=== PATIENT | female | born 1965 | race Hispanic/Latino ===

== ENCOUNTER 2018-02-25 21:10 | Emergency (ER) | payer OTHER, SELFPAY ==
[2018-02-25 22:24] LABS: Absolute Lymphocytes (CBC) 0.5 K/uL (0.7-4.9); Absolute Monocytes 1.1 K/uL (0.1-1.3); Absolute Neutrophil 16.8 K/uL (1.8-8.0); Basophils % 0.1 % (0-1.3); Eosinophils % 0.1 % (0-4.4); Hematocrit 32.3 % (36.0-45.0); Lymphocytes % 2.4 % (15.3-44.8); MCH 22.6 pg (27.0-35.0); MCV 69.9 fL (80-100); MPV 8.8 fL (7.6-11.3); Monocytes % 6.2 % (3.3-12.3); RBC Red Blood Cell Count 4.62 M/uL (3.86-4.86)
[2018-02-25] MEDS ORDERED: ACETAMINOPHEN 500 MG TAB ONE (22:27)
[2018-02-25] MEDS ORDERED: KETOROLAC 30 MG/ML INJ ONE (22:28)
[2018-02-25] MEDS ORDERED: ONDANSETRON 4 MG/2 ML VIAL ONE (22:28)
[2018-02-25 22:47] LABS: Albumin 3.5 g/dL (3.4-5.0); Bilirubin Direct 0.1 mg/dL (0-0.2); Bilirubin Total 0.5 mg/dL (0.2-1.0); Potassium 3.5 mmol/L (3.5-5.1); Protein, Total 7.7 g/dL (6.4-8.2)
[2018-02-25 23:15] LABS: Blood Morphology Comment NOTED (NOT SEEN); Platelet Estimate ADEQ
[2018-02-25 23:16] LABS: Ovalocytes 2+
[2018-02-26 00:29] LABS: Urine Bacteria <20 /HPF (<20); Urine Culture Reflex Order REFLEXED
[2018-02-26] MEDS ORDERED: NA CHLORIDE 0.9% 100 ML IV ONE (01:17)
[2018-02-26] MEDS ORDERED: CEFTRIAXONE 1000 MG/VIAL ONE (01:17)
--- NOTE | 2018-02-26 01:33 | EDPHYS ---
Physician Documentation [facility] Name: Layo Paul Age: 53 yrs Sex: Female : 1965 Arrival Date: 02/25/2018 Time: 21:11 Bed 13 Private MD: ED Physician Nigel Porter HPI: 02/25 22:22 This 53 yrs old Female presents to ER via Ambulatory with complaints of wa Abdominal Pain, Urinary Problem, Nausea. 22:22 The patient presents to the emergency department with nausea, vomiting. Onset: The wa symptoms/episode began/occurred yesterday. Possible causes: states same symptoms related to menses. The symptoms are aggravated by nothing. The symptoms are alleviated by nothing. Associated signs and symptoms: Pertinent positives: nausea, vomiting, Pertinent negatives: constipation, diarrhea, dysuria, fever. Severity of symptoms: At their worst the symptoms were moderate today, in the emergency department the symptoms are unchanged. The patient has experienced similar episodes in the past, multiple times. The patient has not recently seen a physician. 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 - Social history:: Smoking status: Patient/guardian denies using tobacco. - Ebola Screening: : Patient negative for fever greater than or equal to 101.5 degrees Fahrenheit, and additional compatible Ebola Virus Disease symptoms. - Family history:: not pertinent. - Hospitalizations: : No recent hospitalization is reported. ROS: 22:26 Constitutional: Negative for fever, chills, and weight loss, Eyes: Negative for injury, wa pain, redness, and discharge, ENT: Negative for injury, pain, and discharge, Neck: Negative for injury, pain, and swelling, Cardiovascular: Negative for chest pain, palpitations, and edema, Respiratory: Negative for shortness of breath, cough, wheezing, and pleuritic chest pain, Back: Negative for injury and pain, MS/Extremity: Negative for injury and deformity, Skin: Negative for injury, rash, and discoloration, Neuro: Negative for headache, weakness, numbness, tingling, and seizure, Psych: Negative for depression, anxiety, suicide ideation, homicidal ideation, and hallucinations. 22:26 Abdomen/GI: Positive for abdominal pain, of the suprapubic area. 22:26 : Positive for pelvic pain, of the suprapubic area, Negative for urinary symptoms, urinary frequency. Exam: 22:27 Constitutional: This is a well developed, well nourished patient who is awake, alert, wa and in no acute distress. Head/Face: Normocephalic, atraumatic. Eyes: Pupils equal round and reactive to light, extra-ocular motions intact. Lids and lashes normal. Conjunctiva and sclera are non-icteric and not injected. Cornea within normal limits. Periorbital areas with no swelling, redness, or edema. ENT: Nares patent. No nasal discharge, no septal abnormalities noted. Tympanic membranes are normal and external auditory canals are clear. Oropharynx with no redness, swelling, or masses, exudates, or evidence of obstruction, uvula midline. Mucous membranes moist. Neck: Trachea midline, no thyromegaly or masses palpated, and no cervical lymphadenopathy. Supple, full range of motion without nuchal rigidity, or vertebral point tenderness. No Meningismus. Chest/axilla: Normal chest wall appearance and motion. Nontender with no deformity. No lesions are appreciated. Cardiovascular: Regular rate and rhythm with a normal S1 and S2. No gallops, murmurs, or rubs. Normal PMI, no JVD. No pulse deficits. Respiratory: Lungs have equal breath sounds bilaterally, clear to auscultation and percussion. No rales, rhonchi or wheezes noted. No increased work of breathing, no retractions or nasal flaring. Back: No spinal tenderness. No costovertebral tenderness. Full range of motion. Skin: Warm, dry with normal turgor. Normal color with no rashes, no lesions, and no evidence of cellulitis. MS/ Extremity: Pulses equal, no cyanosis. Neurovascular intact. Full, normal range of motion. Neuro: Awake and alert, GCS 15, oriented to person, place, time, and situation. Cranial nerves II-XII grossly intact. Motor strength 5/5 in all extremities. Sensory grossly intact. Cerebellar exam normal. Normal gait. Psych: Awake, alert, with orientation to person, place and time. Behavior, mood, and affect are within normal limits. 22:27 Abdomen/GI: Inspection: abdomen appears normal, Bowel sounds: normal, in all quadrants, Palpation: moderate abdominal tenderness, in the suprapubic area. 22:27 : CVA tenderness, is absent. Vital Signs: 21:34 BP 122 / 51; Pulse 98; Resp 18 S; Temp 98.0(O); Pulse Ox 98% on R/A; Weight 92.99 kg jd3 (R); Height 5 ft. 6 in. (167.64 cm) (R); Pain 10/10; 22:39 BP 135 / 67; Pulse 80; Resp 17 S; Pulse Ox 98% on R/A; jd3 23:37 BP 135 / 77; Pulse 89; Resp 16 S; Pulse Ox 97% on R/A; d3 02/26 00:28 BP 119 / 60; Pulse 88; Resp 19 S; Pulse Ox 99% on R/A; jd3 01:31 BP 108 / 65; Pulse 80; Resp 18; Pulse Ox 97% on R/A; tl2 02:04 BP 115 / 60; Pulse 82; Resp 20; Temp 98.4(O); Pulse Ox 98% on R/A; Pain 3/10; fc 02/25 21:34 Body Mass Index 33.09 (92.99 kg, 167.64 cm) j MDM: 02/25 21:23 Patient medically screened. dc 22:29 Differential diagnosis: dysmenorrhea. r/o infection. check labs. treat pain. reassess. dc 02/26 01:30 Data reviewed: vital signs, nurses notes, lab test result(s). Test interpretation: by dc ED physician or midlevel provider: labs noted for UTI. elevated wbc. CT abd/pelvis: no acute process. 3 cm L adnexal cyst. Response to treatment: the patient's symptoms have markedly improved after treatment. 02/25 22:06 Order name: Basic Metabolic Panel; Complete Time: 23:38 dc 02/25 22:06 Order name: CBC with Diff; Complete Time: 23:39 dc 02/25 22:06 Order name: Hepatic Function; Complete Time: 23:40 dc 02/25 22:06 Order name: Lipase; Complete Time: 23:40 dc 02/25 22:06 Order name: Urine Microscopic Only; Complete Time: 01:06 dc 02/25 22:28 Order name: Manual Differential; Complete Time: 23:28 [facility] 02/25 23:41 Order name: CT Abd/Pelvis - W/Contrast dc 02/26 00:14 Order name: Urine Dipstick--Ancillary (enter results) 02/26 00:14 Order name: Urine --Ancillary (enter results) 02/26 00:30 Order name: Urine Culture [facility] 02/25 22:06 Order name: IV Saline Lock; Complete Time: 22:17 dc 02/25 22:06 Order name: Labs collected and sent; Complete Time: 22:17 dc 02/25 22:06 Order name: Urine Dipstick-Ancillary (obtain specimen); Complete Time: 22:29 dc Administered Medications: 02/25 22:29 Drug: Zofran 4 mg Route: IVP; Site: right antecubital; 2 02/26 01:30 Follow up: Response: No adverse reaction; Nausea is decreased [facility] 02/25 22:29 Drug: TORadol 30 mg Route: IVP; Site: right antecubital; [facility] 02/26 01:31 Follow up: Response: No adverse reaction; Pain is decreased [facility] 02/25 22:29 Drug: Tylenol 1000 mg Route: PO; 2 02/26 01:31 Follow up: Response: No adverse reaction 2 01:30 Drug: Rocephin - (cefTRIAXone) 2 grams Route: IVPB; Infused Over: 30 mins; Site: right tl2 antecubital; 02:05 Follow up: Response: No adverse reaction; No change in condition; IV Status: Completed fc infusion Disposition: 02/26/18 01:33 Discharged to Home. Impression: acute UTI, left adnexal cyst. - Condition is Stable. - Prescriptions for Ibuprofen 600 mg Oral Tablet - take 1 tablet by ORAL route every 6 hours As needed take with food; 30 tablet. Keflex 500 mg Oral Capsule - take 1 capsule by ORAL route every 8 hours for 3 days; 9 capsule. Zofran 4 mg Oral Tablet - take 1 tablet by ORAL route every 12 hours As needed; 6 tablet. - Medication Reconciliation Form, Thank You Letter, Antibiotic Education, Prescription Opioid Use form. - Follow up: Private Physician; When: 2 - 3 days; Reason: Recheck today's complaints. - Problem is new. - Symptoms have improved. Signatures: Dispatcher [employer] Lina Hackett RN RN Avelina Rosales RN RN tl2 Nigel Porter MD MD wa Davies, Jonathon RN RN jd3 Corrections: (The following items were deleted from the chart) 02:06 01:33 02/26/2018 01:33 Discharged to Home. Impression: acute UTI; left adnexal cyst. fc Condition is Stable. Forms are Medication Reconciliation Form, Thank You Letter, Antibiotic Education, Prescription Opioid Use. Follow up: Private Physician; When: 2 - 3 days; Reason: Recheck today's complaints. Problem is new. Symptoms have improved. trinity
--- NOTE | 2018-02-26 01:33 | ER ---
Nurse's Notes [facility] Name: Layo Paul Age: 53 yrs Sex: Female : 1965 Arrival Date: 02/25/2018 Time: 21:11 Bed 13 Private MD: Diagnosis: acute UTI;left adnexal cyst Presentation: 02/25 21:31 Presenting complaint: Patient states: "I have been having stomach pains with nausea and jd3 vomiting today. I also have been on my period and bleed now for 8 days.". Transition of care: patient was not received from another setting of care. Onset of symptoms was February 25, 2018. Risk Assessment: Do you want to hurt yourself or someone else? Patient reports no desire to harm self or others. Initial Sepsis Screen: Does the patient meet any 2 criteria? No. Patient's initial sepsis screen is negative. Does the patient have a suspected source of infection? No. Patient's initial sepsis screen is negative. Care prior to arrival: None. 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 - Social history:: Smoking status: Patient/guardian denies using tobacco. - Ebola Screening: : Patient negative for fever greater than or equal to 101.5 degrees Fahrenheit, and additional compatible Ebola Virus Disease symptoms. - Family history:: not pertinent. - Hospitalizations: : No recent hospitalization is reported. Screenin:37 Abuse screen: Denies threats or abuse. Nutritional screening: No deficits noted. jd3 Tuberculosis screening: No symptoms or risk factors identified. Fall Risk Ambulatory Aid- None/Bed Rest/Nurse Assist (0 pts). Gait- Normal/Bed Rest/Wheelchair (0 pts) Mental Status- Oriented to own ability (0 pts). Total Berger Fall Scale indicates No Risk (0-24 pts). Assessment: 21:35 General: Appears in no apparent distress. uncomfortable, Behavior is calm, cooperative, jd3 appropriate for age. Pain: Complains of pain in abdomen Pain currently is 10 out of 10 on a pain scale. Quality of pain is described as sharp, tender, Also complains of nausea. Neuro: Level of Consciousness is awake, alert, obeys commands, Oriented to person, place, time, situation, Appropriate for age. Cardiovascular: Capillary refill < 3 seconds Patient's skin is warm and dry. Respiratory: Airway is patent Respiratory effort is even, unlabored, Respiratory pattern is regular, symmetrical. GI: Abdomen is round Bowel sounds present X 4 quads. Abd is soft X 4 quads Abdomen is tender to palpation X 4 quads. Reports nausea, vomiting. : No signs and/or symptoms were reported regarding the genitourinary system. EENT: No signs and/or symptoms were reported regarding the EENT system. Derm: Skin is intact, Skin is dry, Skin is normal, Skin temperature is warm. Musculoskeletal: Circulation, motion, and sensation intact. Range of motion: intact in all extremities. 22:40 Reassessment: Patient appears in no apparent distress at this time. Patient and/or jd3 family updated on plan of care and expected duration. Pain level reassessed. Patient is alert, oriented x 3, equal unlabored respirations, skin warm/dry/pink. 23:36 Reassessment: Patient appears in no apparent distress at this time. Patient and/or jd3 family updated on plan of care and expected duration. Pain level reassessed. Patient is alert, oriented x 3, equal unlabored respirations, skin warm/dry/pink. 02/26 00:28 Reassessment: Patient appears in no apparent distress at this time. Patient and/or jd3 family updated on plan of care and expected duration. Pain level reassessed. Patient is alert, oriented x 3, equal unlabored respirations, skin warm/dry/pink. Patient states feeling better. Vital Signs: 02/25 21:34 BP 122 / 51; Pulse 98; Resp 18 S; Temp 98.0(O); Pulse Ox 98% on R/A; Weight 92.99 kg jd3 (R); Height 5 ft. 6 in. (167.64 cm) (R); Pain 10/10; 22:39 BP 135 / 67; Pulse 80; Resp 17 S; Pulse Ox 98% on R/A; jd3 23:37 BP 135 / 77; Pulse 89; Resp 16 S; Pulse Ox 97% on R/A; jd3 02/26 00:28 BP 119 / 60; Pulse 88; Resp 19 S; Pulse Ox 99% on R/A; jd3 01:31 BP 108 / 65; Pulse 80; Resp 18; Pulse Ox 97% on R/A; tl2 02:04 BP 115 / 60; Pulse 82; Resp 20; Temp 98.4(O); Pulse Ox 98% on R/A; Pain 3/10; fc 02/25 21:34 Body Mass Index 33.09 (92.99 kg, 167.64 cm) jd3 ED Course: 02/25 21:11 Patient arrived in ED. al2 21:23 Nigel Porter MD is Attending Physician. wa 21:31 Gopi Slater, THERESA is Primary Nurse. jd3 21:33 Triage completed. jd3 21:35 Arm band placed on. jd3 21:38 Patient has correct armband on for positive identification. Bed in low position. Call jd3 light in reach. Side rails up X 1. Adult w/ patient. 22:30 Inserted saline lock: 20 gauge in right antecubital area, using aseptic technique. tl2 Blood collected. 23:[address] via wheelchair. kw1 02/26 00:17 CT completed. Patient tolerated procedure well. Patient moved back from CT. kw1 00:19 CT Abd/Pelvis - W/Contrast In Process Unspecified. EDMS 02:06 No provider procedures requiring assistance completed. IV discontinued, intact, fc bleeding controlled, No redness/swelling at site. Pressure dressing applied. Administered Medications: 02/25 22:29 Drug: Zofran 4 mg Route: IVP; Site: right antecubital; tl2 02/26 01:30 Follow up: Response: No adverse reaction; Nausea is decreased tl2 02/25 22:29 Drug: TORadol 30 mg Route: IVP; Site: right antecubital; tl2 02/26 01:31 Follow up: Response: No adverse reaction; Pain is decreased tl2 02/25 22:29 Drug: Tylenol 1000 mg Route: PO; tl2 02/26 01:31 Follow up: Response: No adverse reaction tl2 01:30 Drug: Rocephin - (cefTRIAXone) 2 grams Route: IVPB; Infused Over: 30 mins; Site: right tl2 antecubital; 02:05 Follow up: Response: No adverse reaction; No change in condition; IV Status: Completed fc infusion Outcome: 01:33 Discharge ordered by . trinity 02:05 Discharged to home ambulatory. 02:05 Condition: good 02:05 Discharge instructions given to patient, family, Instructed on discharge instructions, follow up and referral plans. no drinking with medication, no driving heavy equipment, medication usage, Demonstrated understanding of instructions, follow-up care, medications, Prescriptions given X 3. 02:06 Patient left the ED. fc Signatures: Dispatcher [employer] EDMS Lina Kumar RN RN fc Knox, Taylor, RN RN tl2 Nigel Porter MD MD wa Davies, Jonathon, RN RN jd3 Roland, Olga kw1 Bernice, Ginger strauss2 Corrections: (The following items were deleted from the chart) 00:28 00:28 Reassessment: Patient appears in no apparent distress at this time. Patient jd3 and/or family updated on plan of care and expected duration. Pain level reassessed. Patient is alert, oriented x 3, equal unlabored respirations, skin warm/dry/pink. jd3
[2018-02-26 01:46] LABS: Urine Blood 2+ (NEG); Urine Glucose NEGATIVE (NEG); Urine Protein 1+ (NEG)
--- NOTE | 2018-02-26 09:22 | RAD REPORT ---
EXAM DESCRIPTION: CT - Abdomen Pelvis W Contrast - 02/26/2018 4:38 am CLINICAL HISTORY: Abdominal pain, nausea, vomiting. A preliminary written report was provided at the time of the study, and the report was reviewed prio r to final dictation. COMPARISON: None. TECHNIQUE: Biphasic, helical CT imaging of the abdomen and pelvis was performed following 100 ml non -ionic IV contrast. No oral contrast administered. All CT scans are performed using dose optimization technique as appropriate and may include automated exposure control or mA/KV adjustment according to patient size. FINDINGS: No suspicious findings in the lung bases. The liver, spleen, and pancreas show no suspicious findings. Gallbladder and biliary tree are also wi thout suspicious finding. Gallstones can be occult. Symmetric renal function is seen with no hydronephrosis or suspicious renal mass. No acute renal pare nchymal process. No urinary bladder abnormality. No dilated bowel loops or bowel wall thickening. No appendicitis. No free air or pneumatosis. Trace a vera of physiologic quantity fluid noted in the dependent portion of the pelvis. No hernia, mass o r bulky lymphadenopathy. No adrenal abnormality. Normal size uterus seen. There is heterogeneity in the endometrial cavity, not unexpected on the fede ent currently on her menstrual cycle. Right ovarian process is not suspected. Cystic or low-density a reas at the left ovary noted. This is probably multiple small left ovarian cysts. The configuration i s somewhat suggestive of a tubular structure. A left hydrosalpinx is not entirely excluded. Pyosalpin x is doubtful given the clinical picture presented. No suspicious bony findings. IMPRESSION: No appendicitis, bowel obstruction or other surgically emergent finding. No acute GI process seen. Nonspecific enteritis is possible. Left ovary appears to contain several small cysts. A left hydrosalpinx is not excluded. Pyosalpinx is not suspected. Follow-up pelvic ultrasound could be performed if the patient's symptoms are referable to the left ad nexa.
== END 2018-02-26 02:06 | disposition home or self-care (01) ==
LOC: ER 21:10
DX: N39.0 Urinary tract infection, site not specified (principal); E27.9 Disorder of adrenal gland, unspecified
CPT/HCPCS: 36415; 74177; 80048; 80076; 81003; 81015; 81025; 83690; 85025; 87086; 87088; 96365; 96375; 99284; J2405; Q9967